=== PATIENT | male | born 2000 | race Caucasian/White ===

== ENCOUNTER → 2020-02-09 | Outpatient (CLI) | payer OTHER ==
[~2020-02-09] MED LIST: NOHOMEMEDICATIONS; PREDNISONE 10 M10 M1 PO
== END ==
LOC: M.RAD 12:09
PROVIDERS: ATTEND Nurse Practitioner Family
DX: R10.13 Epigastric pain (principal)

== ENCOUNTER 2020-11-09 20:24 | Inpatient (IN) | payer OTHER ==
[~2020-11-09] VITALS: Ht 165.1 cm; Wt 97.5 kg
--- NOTE | ~2020-11-09 | EMS ---
[place] [address] EMS Patient Care Report Name: BRYCE MURPHY Room: [facility]#: [id number] Admission: 11/09/20 Attend Phys: Discharge: Date of : 00 Report #: [id number] THIS REPORT FOR: //name// Report Transmitted: 11/09/2020 20:13 EMS Care Summary [facility] Incident [phone] @ 11/09/2020 19:46 Incident Location [address] [place] [address] Patient BRYCE MURPHY Male, 19 Years 2000 Patient Address [address] [place] [address] Patient History None Reported, Patient Allergies Augmentin, Patient Medications None Reported, Chief Complaint RLQ ABD pain Disposition Transported No Lights/[place] Dispatch Reason Sick Person Transported To [facility] Narrative Dispatched to a residence for a 19y/o male with ABD pain. Upon arrival pt. was alert and oriented. Pt. states that he has had RLQ pain for the past 4 [place] [address] EMS Patient Care Report Name: BRYCE MURPHY Room: [facility]#: [id number] Admission: 11/09/20 Attend Phys: Discharge: Date of : 00 Report #: [id number] and off and on for the past couple of years. Pt. stated that he had appendicitis in the past that required antibiotics and pain meds.. Pt. states his pain is 9/10 increasing with palpation but 0 rebound tenderness. Pt. was placed in position of comfort for transport and stated that he pain was minimal. Pt. was transported to [place] for emergency services. Initial Vitals @19:55P: 92,R: 16,BP: 120/76,Pain: 9/10,GCS: 15,SpO2: 100,Revised Trauma: 12, @20:10P: 76,R: 16,BP: 118/58,Pain: 3/10,GCS: 15,SpO2: 100,Revised Trauma: 12, Impression Abdominal Pain Timeline 19:44,Call Received 19:46,Dispatched 19:48,En Route 19:50,Initial Responder On Scene 19:50,On Scene 19:51,At Patient 19:55,BP: 120/76 M,PULSE: 92,RR: 16 R,SPO2: 100 Ox,ETCO2: ,BG: ,PAIN: 9,GCS: 15, 19:57,Depart Scene 20:10,BP: 118/58 M,PULSE: 76,RR: 16 R,SPO2: 100 Ox,ETCO2: ,BG: ,PAIN: 3,GCS: 15, 20:20,At Destination 20:22,Transfer Patient 20:33,Call Closed 20:48,In District Disclaimer v1.1 Copyright 2020 [employer] This EMS Care Summary contains data elements from the applicable legal record (which may be displayed differently). It is designed to provide pertinent information for the following purposes: continuity of care, clinical quality, and state data reporting. The complete legal record is available to ED staff and administrators of the receiving hospital in ES's Patient Tracker. All data is provided "as is."
[2020-11-09 20:26] VITALS: BP 110/54
[2020-11-09 20:53] LABS: URINE BILIRUBIN NEGATIVE (Negative); URINE BLOOD NEGATIVE (Negative); URINE CLARITY CLEAR; URINE COLOR YELLOW; URINE GLUCOSE-RANDOM NEGATIVE (Negative); URINE KETONES NEGATIVE (Negative); URINE LEUKOCYTES-REFLEX NEGATIVE (Negative); URINE NITRITE-REFLEX NEGATIVE (Negative); URINE PROTEIN NEGATIVE (Negative); URINE SPECIFIC GRAVITY 1.025 (1.005-1.030); URINE UROBILINOGEN 0.2 E.U./dl (0.2-1.0)
[2020-11-09 20:56] LABS: ABSOLUTE BASOPHILS 0.1 thou/uL (0.0-0.2); ABSOLUTE EOSINOPHILS 0.2 thou/uL (0.0-0.7); ABSOLUTE LYMPHOCYTES 2.3 thou/uL (0.8-5.3); ABSOLUTE MONOCYTES 0.8 thou/uL (0.0-1.2); ABSOLUTE NEUTROPHILS 9.1 thou/uL (1.6-8.1); BASOPHILS 0.5 %; EOSINOPHILS 1.6 %; HEMATOCRIT 46.1 % (42.0-52.0); HEMOGLOBIN 15.7 gm/dL (14.0-18.0); LYMPHOCYTES 18.2 %; MCH 28.3 pg (26.0-34.0); MCHC 34.1 g/dL (28.0-37.0); MCV 82.8 fL (80.0-100.0); MONOCYTES 6.3 %; MPV 6.9 fl. (7.2-11.1); NUCLEATED RBCS 0 /100WBC; PLATELET COUNT* 278 thou/uL (150-400); POLYS 73.4 %; RBC 5.56 mil/uL (4.50-6.00); RDW-CV 13.2 % (10.5-14.5); WBC 12.4 thou/uL (4.0-11.0)
[2020-11-09 21:03] LABS: CALCIUM 9.3 mg/dL (8.5-10.1)
[2020-11-09 21:08] LABS: ALBUMIN 4.5 g/dL (3.4-5.0); TOTAL BILIRUBIN 0.6 mg/dL (<0.1-1.0); TOTAL PROTEIN 7.7 g/dL (6.4-8.2)
[2020-11-09 23:30] VITALS: BP 110/56
[2020-11-10 04:00] VITALS: BP 124/73
--- NOTE | 2020-11-10 04:46 | NUR ---
PT ADMITTED 2344. ALERT AND ORIENTED, AD JEFF, ROOM AIR. MORPHINE/ZOFRAN FOR NAUSEA AND PAIN MANAGEMENT. RECEIVED FLUIDS SCHEDULED. NPO SINCE MIDNIGHT.
[2020-11-10 08:00] VITALS: BP 113/44
[2020-11-10 16:00] VITALS: BP 113/55
[2020-11-10 17:00] VITALS: BP 113/55
--- NOTE | 2020-11-10 18:45 | NUR ---
PT DISCHARGED HOME WITH ALL BELONGINGS ACCOMPANIED BY HIS FATHER. PT HAS A GOOD UNDERSTANDING OF DISCHARGE INSTRUCTIONS. PT DENIED PAIN ON DISCHARGE. [employer] REMOVED HUB INTACT.
--- NOTE | 2020-11-13 07:06 | OP ---
[facility] [address] [place] [address] OPERATIVE REPORT Name: BRYCE MURPHY Room: [address] M.R.#: [id number] Admission: 11/09/20 Attend Phys: Marcel Lemus Discharge: 11/10/20 Date of : 00 Report #: [id number] THIS REPORT FOR: cc: [place] - [place] family physician/PCP FAM - No family physician/PCP Marcel Lemus MD ~ DATE OF SURGERY: 11/10/2020 PREOPERATIVE DIAGNOSIS: Acute appendicitis. POSTOPERATIVE DIAGNOSIS: Acute appendicitis. OPERATION: Laparoscopic appendectomy. SURGEON: Marcel Lemus MD ANESTHESIA: General. ESTIMATED BLOOD LOSS: Minimal. SPECIMENS: Appendix. DESCRIPTION OF PROCEDURE: After informed consent was obtained, the patient was brought to the operating room and placed supine. SCDs were placed and working, preoperative antibiotics were administered, general anesthesia was induced. The abdomen was prepped and draped in the usual sterile fashion. A 10 mm incision was made below the umbilicus. Fascia was incised and a trocar was placed. Pneumoperitoneum was established. Right upper quadrant and left lower quadrant 5 mm trocars were placed under direct vision. The appendix was grasped and retracted anteriorly. A window was made in the mesoappendix. I ligated the mesoappendix using the LigaSure device. There was excellent hemostasis. Base of the appendix was then ligated using a PDS Endoloop. The appendix was removed through an Endopouch. The fascia at the umbilicus was closed with a [id number] 0 Vicryl. Skin was closed with 4-0 Monocryl. Incisions were dressed with Steri-Strips. COMPLICATIONS: None. DISPOSITION: The patient was taken to recovery in satisfactory condition. <ELECTRONICALLY SIGNED> By: Marcel Lemus MD 11/13/20 [id number] Lemus MD /nt
== END 2020-11-10 18:47 | disposition home or self-care (01) | DRG 343 ==
LOC: M.ERS 20:24 → M.TBA-ER 23:02 → M.2W 23:36
PROVIDERS: Physician Assistant; ADMIT Surgery; ATTEND Surgery
PROC: 0DTJ4ZZ Resection of Appendix, Percutaneous Endoscopic Approach (ICD-10-PCS; principal; 2020-11-10)
DX: K35.80 Unspecified acute appendicitis (principal); Z88.1 Allergy status to other antibiotic agents; Z20.822 Contact with and (suspected) exposure to COVID-19